=== PATIENT | female | born 1955 | race Caucasian/White ===

== ENCOUNTER 2019-11-05 15:22 | Inpatient (IN) | payer OTHER ==
[~2019-11-05] VITALS: Ht 172.7 cm; Wt 147.0 kg
--- NOTE | 2019-11-05 16:19 | NUR ---
PATIENT AAOX4 PRESENTS TO THE ED WITH C/O LEFT LOWER LEG PAIN X 1 DAYS. PT SAW HER PHYSICIAN AND WAS GIVEN LASIX BUT PAIN HAS INCREASED. PT WAS SUPPSED TO GET U/S DOPPLER TEST TO R/O CLOT BUT FELL SICK AND WAS UNABLE TO MAKE APPOINTMENT. PT BREATHING E/U, SKIN WARM DRY AND INTACT. SWELLING NOTED TO LEFT LOWER LEG- PAIN RADIATES UP TO THIGH. PT PLACED IN GOWN, AWAITING MSE.
[2019-11-05 17:27] LABS: CALCIUM 9.1 mg/dL (8.5-10.1); CHLORIDE SERUM 101 mmol/L (98-107); CREATININE SERUM 0.9 mg/dL (0.6-1.0); GFR1 > 60 mL/min; GLUCOSE SERUM 99 mg/dL (74-106); POTASSIUM SERUM 3.9 mmol/L (3.5-5.1); SODIUM SERUM 142 mmol/L (136-145)
--- NOTE | 2019-11-05 17:27 | NUR ---
ADVISED DR KAM OF BODY RASH-- RASH NOTED UNDER BILATERAL BREASTS, AND AT ABDOMEN BETWEEN FOLDS OF SKIN.
[2019-11-05 17:30] LABS: BASOPHIL % 0.3 % (0-2); PLATELET COUNT 310 x10^3mcL (130-400)
[2019-11-05 17:32] LABS: ALBUMIN 3.6 g/dL (3.4-5.0); ALKALINE PHOSPHATASE 97 U/L (46-116); ALT/SGPT 20 U/L (14-59); AST/SGOT 14 U/L (15-37); BILIRUBIN TOTAL 0.37 mg/dL (0.20-1.00); CHOLESTEROL 148 mg/dL (<200); LIPASE 246 IU/L (73-393); TRIGLYCERIDES 55 mg/dL (<150)
[2019-11-05 17:34] LABS: RED CELL DISTRIBUTION WIDTH 14.8 % (11.5-14.5)
[2019-11-05 17:34] LABS: microscopic required? YES; urine erythrocyte NEGATIVE (NEGATIVE)
[2019-11-05 17:36] LABS: CHOLESTEROL/HDL RATIO 2.3; HDL CHOLESTEROL 63 mg/dL (40-60)
[2019-11-05 17:42] LABS: FREE T4 1.2 ng/dL (0.76-1.46); FREE THYROXINE INDEX 2.9 ug/dL (1.4-4.5); T4(THYROXINE) 8.8 ug/dL (4.7-13.3)
[2019-11-05 17:47] LABS: T3 TOTAL 0.7 ng/mL
--- NOTE | 2019-11-05 18:24 | NUR ---
U/S IN PROGRESS BEDSIDE
--- NOTE | 2019-11-05 18:53 | NUR ---
MEDICATED PER MD ORDERS-- SEE EMR
[2019-11-05] MEDS ORDERED: AUSTEDO12 MG PO (19:14)
[2019-11-05] MEDS ORDERED: METFORMIN HCL1000 MG PO (19:14)
[2019-11-05] MEDS ORDERED: JANUVIA100 M1 PO (19:15)
[2019-11-05] MEDS ORDERED: CYMBALTA60 M1 PO (19:16)
[2019-11-05] MEDS ORDERED: FUROSEMIDE20 MG PO (19:16)
[2019-11-05] MEDS ORDERED: ATORVASTATIN CA40 M1 PO (19:16)
[2019-11-05] MEDS ORDERED: GABAPENTIN100 M2 PO (19:16)
[2019-11-05] MEDS ORDERED: LEVOTHYROXINE0.1 M2 PO (19:17)
[2019-11-05] MEDS ORDERED: PANTOPRAZOLE SO40 M1 PO (19:17)
[2019-11-05] MEDS ORDERED: LOSARTAN POTASS50 M1 PO (19:17)
[2019-11-05] MEDS ORDERED: NAPROXEN500 MG PO (19:18)
[2019-11-05] MEDS ORDERED: FLUTICASON0.05 MG/Ac (19:19)
--- NOTE | 2019-11-05 19:29 | NUR ---
REPORT PROVIDED TO ROMI VALENCIA FOR CONTINUED CARE OF PATIENT- TELE
--- NOTE | 2019-11-05 19:42 | NUR ---
PATIENT HAND OFF TO TRANSFER PATIENT UPSTAIRS GIVEN TO ROMI COOPER
--- NOTE | 2019-11-05 20:03 | NUR ---
RE[facility], CAME IN DUE TO LLE PAIN AND SWELLING X1 WEEK. AAOX4. C/O MILD HEADACHE. NO SOB NOTED, LUNG SOUNDS CTA, O2 SAT=97%, RA. DENIES CHEST PAIN/PRESSURE, SR ON THE MONITOR. W/ LLE SWELLING. PULSES ARE PALPABLE. DENIES ABDOMINAL PAIN. C/O NAUSEA. ABDOMEN IS ROUND AND SOFT. STATED THAT SHE HAS FREQUENT URINATION AFTER LASIX WAS GIVEN. W/ DISCOLORATIONS ON BILATERAL BREASTFOLDS AND GROIN, CELLAR PACKER. C/O 8/10 CONSTANT ACHING PAIN ON LLE. IV SITE PATENT AND INTACT. SIDE RAILS UPX2. CALL LIGHT ON REACH. ENDORSED TO PRIMARY NURSE JASON FOR CONTINUITY OF CARE
[2019-11-05 20:19] VITALS: BP 156/74
[2019-11-05 20:27] VITALS: Ht 172.7 cm; Wt 147.0 kg
[2019-11-05 20:31] LABS: MAGNESIUM 1.5 mg/dL (1.8-2.4); PHOSPHOROUS 3.7 mg/dL (2.5-4.9)
--- NOTE | 2019-11-05 20:45 | NUR ---
PT C/O 8/10 LLE PAIN, AND ALSO C/O NAUSEA. MEDICATED WITH PRN NORCO AND ZOFRANN PER DEC. NO ACUTE DISTRESS NOTED. WILL CONT TO MONITOR
--- NOTE | 2019-11-05 21:30 | NUR ---
REPORTED POSITIVE UA AND MG 1.[address] XIE. NO NEW ORDERS RECEIVED. WILL CONT TO MONITOR.
--- NOTE | 2019-11-05 22:30 | NUR ---
PT STATES RELIEF OF NAUSE AND PAIN. RATES PAIN AT 2/10. NO ACUTE DISTRESS NOTED. WILL CONT TO MONITOR.
--- NOTE | 2019-11-06 | NUR ---
RECEIVED ORDER FOR REINA CATH INSERTION, CALLED DR XIE TO CONFIRM ORDER SINCE PT IS AMBULATORY AND NO C/O AT URINATION. PER DR XIE,ORDER IS WORNG. NO NEED FOR REINA INSERTION.
--- NOTE | 2019-11-06 01:08 | NUR ---
PT C/O LLE PAIN 04/04, MEDICATED WITH PRN NORCO PER DEC. NO ACUTE DISTRESS NOTED. WILL CONT TO MONITOR.
--- NOTE | 2019-11-06 02:00 | NUR ---
PT C/O ANXIETY, MEDICATED WITH ATIVAN PO PER MAR. NO ACUTE DISTRESS NOTED. WILL CONT TO MONITOR.
--- NOTE | 2019-11-06 02:30 | NUR ---
PT SLEEPING COMFORTABLY, BREATHING EVEN AND UNLABORED ON RA. NO ACUTE DISTRESS NOTED. BED AT LOWEST SETTING. SIDE RAILS X2 UP. CALL LIGHT WITHING REACH. WILL CONT TO MONITOR.
[2019-11-06 05:15] VITALS: BP 128/57
--- NOTE | 2019-11-06 05:51 | NUR ---
PT SLEPT AT INTERVALS THROUGHOUT THE NIGHT, BREATHING EVEN AND UNLABORED ON RA. PT C/O 04/04 LLE, MEDICATED WITH PRN NORCO PER DEC. NO ACUTE DISTRESS NOTED. ALL NEEDS ASSESSED AND ATTENDED TO. BED AT LOWEST SETTING. SIDE RAILS X2 UP. CALL LIGHT WITHING REACH. WILL CONT TO MONITOR AND ENDORSE CARE TO AM NURSE.
[2019-11-06 06:46] LABS: CALCIUM 8.7 mg/dL (8.5-10.1); CARBON DIOXIDE 32.4 mmol/L (21-32); MAGNESIUM 1.7 mg/dL (1.8-2.4); PHOSPHOROUS 5.1 mg/dL (2.5-4.9); POTASSIUM SERUM 4.2 mmol/L (3.5-5.1)
[2019-11-06 06:48] LABS: BASOPHIL % 0.4 % (0-2); PLATELET COUNT 266 x10^3mcL (130-400)
--- NOTE | 2019-11-06 07:40 | NUR ---
RECEIVED PT FROM BICYCLE FITTER RN. Mari/AGNES. TELE#[id number]. DENIES CHEST PAIN/PRESSURE. RESPIRATIONS EQUAL AND UNLABORED ON RA. DENIES SOB. PT C/O PAIN TO LLE PRESSURE. PT STATES PAIN HAS IMPROVED A LITTLE SINCE RECEIVING NORCO THIS AM. PT C/O NAUSEA AND ABDOMINAL TENDERNESS UPON PALP TO ALL QUADRANTS. IV TO RAC SALINE LOCKED. NO REDNESS OR SWELLING NOTED. WILL CONTINUE TO MONITOR. CALL LIGHT IN REACH. BED IN LOWEST POSITION.
[2019-11-06 09:38] VITALS: BP 105/56
[2019-11-06] MEDS ORDERED: ULTRAM50 MG PO (10:45)
--- NOTE | 2019-11-06 11:03 | NUR ---
PT SITTING UP IN BED. NO ACUTE RESP DISTRESS NOTED ON RA. GIVEN PO MEDS. TOLERATED WELL. PT C/O PAIN TO LLE PRESSURE. MEDICATED PER EMAR. IV TO RFA UNABLE TO FLUSH. REMOVED CATHETER INTACT. NO REDNESS OR SWELLING NOTED. NEW IV STARTED TO LW FLUSHED WELL, WITH GOOD BLOOD RETURN. PT STATES NAUSEA IS TOLERABLE AT THIS TIME. TOLERATED BREAKFAST WELL. WILL CONTINUE TO MONITOR. CALL LIGHT IN REACH. BED IN LOWEST POSITION.
[2019-11-06] MEDS ORDERED: GABAPENTIN100 M2 PO ×2 (11:49→12:57)
--- NOTE | 2019-11-06 12:05 | NUR ---
PT SITTING UP IN BED. PT MADE AWARE OF DISCHARGE ORDER. PT STATES I CAN HAVE MY SISTER PICK ME UP, I WILL CALL HER. PT STILL HAVING PAIN TO LLE 7/10 PRESSURE. MEDICATED PER EMAR. PT ASKING TO EAT LUNCH HERE. BLOOD SUGAR CHECKED WAS 166. MEDICATED PER SLIDING. WILL CONTINUE TO MONITOR. CALL LIGHT IN REACH. BED IN LOWEST POSITION.
[2019-11-06 12:45] VITALS: BP 105/56
--- NOTE | 2019-11-06 12:56 | NUR ---
NOTED ON DISCHARGE CHANGE TO DOSE OF GABAPENTIN, PRESCRIPTION STATES PRINTED, CALLED DR. DOHERTY TO CLARIFY IF A WRITTEN PRESCRIPTION WILL BE PROVIDED, PER DR. DOHERTY WILL RESEND PRESCRIPTION TO PT PREFERRED PHARMACY.
--- NOTE | 2019-11-06 13:25 | NUR ---
WENT TO GIVE PT DISCHARGE INSTRUCTIONS. PT STATES NO LONGER HAS A PRESCRIPTION FOR LASIX AND NEEDS A REFILL. PT ALSO ASKING FOR POTASSIUM SUPPLEMENT. CALLED DR. DOHERTY REGARDING PT REQUEST. PER DR. DOHERTY WILL REFILL LASIX BUT PT NEEDS TO FOLLOW UP WITH PCP REGARDIN POTASSIUM SUPPLEMENT. WILL PROVIDE EDUCATION REGARDING INCREASING POTASSIUM IN DIET.
[2019-11-06] MEDS ORDERED: FUROSEMIDE20 MG PO (13:26)
[2019-11-06 13:27] VITALS: BP 140/64
--- NOTE | 2019-11-06 13:53 | NUR ---
PT SITTING UP IN BED. NO ACUTE RESP DISTRESS NOTED ON RA. PT GIVEN DISCHARGE INSTRUCTIONS. PT EDUCATED ON WAYS OF INCREASING POTASSIUM IN DIET. PT VERBALIZED UNDERSTANDING. PT ENCOURAGED TO FOLLOW UP WITH PCP WITHIN 1 WEEK OF DISCHARGE. PT ENCOURAGED TO TAKE HOME MEDICATIONS PRESCRIBED. PT NOTIFIED OF PRESCRIPTIONS SENT TO [facility]. ALL QUESTIONS AND CONCERNS ADDRESSED. PT PROVIDED WITH DISCHARGE PACKET. NO PROBLEMS ENCOUNTERED. IV TO LW REMOVED CATHETER INTACT. PT TAKEN OFF FLOOR ACCOMPANIED BY SHAUN.
== END 2019-11-06 14:12 | disposition home or self-care (01) | DRG 300 ==
LOC: ED 15:22 → DU 19:01
PROVIDERS: Specialist; ADMIT Family Medicine
DX: I83.813 Varicose veins of bilateral lower extremities with pain (principal); N39.0 Urinary tract infection, site not specified; J81.1 Chronic pulmonary edema; D68.69 Other thrombophilia; Z68.42 Body mass index [BMI] 45.0-49.9, adult; I83.893 Varicose veins of bilateral lower extremities with other complications; E11.65 Type 2 diabetes mellitus with hyperglycemia; I10 Essential (primary) hypertension; F32.9 Major depressive disorder, single episode, unspecified; E03.9 Hypothyroidism, unspecified; E78.9 Disorder of lipoprotein metabolism, unspecified; Z79.84 Long term (current) use of oral hypoglycemic drugs
CPT/HCPCS: 82962; 83880; 84439; C9113; G0378; J0696; J1885; J1940; J2270; J2405; J3010; J7030; J7060; Q0092